=== PATIENT | male | born 1940 | race Caucasian/White ===

== ENCOUNTER 2019-07-07 13:47 | Emergency (ER) | payer OTHER ==
[~2019-07-07] VITALS: Ht 160 cm; Wt 55.3 kg
[~2019-07-07 13:47] MED LIST: ASPI-1077 PO; COR3.125 PO; PRAV40TA63 PO
[2019-07-07 13:56] VITALS: BP_SYST 131
--- NOTE | 2019-07-07 14:00 | NUR ---
Patient to ER bed 3 to gown for evaluation. Side rails up. Report given to DAX Mahan
--- NOTE | 2019-07-07 14:00 | NUR ---
Pt came to ER from home after feeling palpitations and tachycardic. No chest pain, or other complaints at this time.
--- NOTE | 2019-07-07 14:10 | NUR ---
Dr Gil to bedside for assessment
[2019-07-07] MEDS ORDERED: DILTIAZEM HCL 25 MG/5 ML VIAL IVP ONE (14:15)
--- NOTE | 2019-07-07 14:15 | NUR ---
Cardizem IVP administered
--- NOTE | 2019-07-07 14:25 | NUR ---
Cardizem and Amiadorne not administered. Pt self convereted to controlled a-fib
[2019-07-07] MEDS ORDERED: AMIODARONE HCL 150 MG/3ML VIAL IVP ONE (14:30)
[2019-07-07] MEDS ORDERED: NACL 0.9% 1,000 ML IV ONE (14:30)
[2019-07-07 14:56] LABS: BASOPHILS # (AUTO) 0.1 K/uL (0.0-0.2); BASOPHILS % (AUTO) 0.7 % (0.0-2.0); EOSINOPHILS # (AUTO) 0.1 K/uL (0.0-0.4); EOSINOPHILS % (AUTO) 0.8 % (0.0-4.0); HEMATOCRIT 47.8 % (36-54); HEMOGLOBIN 16.6 g/dL (14.0-18.0); LYMPHOCYTES # (AUTO) 1.3 K/uL (1.0-5.5); LYMPHOCYTES % (AUTO) 13.1 % (20.5-51.5); MEAN CORPUSCULAR HEMOGLOBIN 33 pg (27-31); MEAN CORPUSCULAR HGB CONC 35 % (32-36); MEAN CORPUSCULAR VOLUME 94 fL (79.0-98.0); MONOCYTES # (AUTO) 0.5 K/uL (0.0-1.0); MONOCYTES % (AUTO) 5.7 % (1.7-9.3); NEUTROPHILS # (AUTO) 7.6 K/uL (1.8-7.7); NEUTROPHILS % (AUTO) 79.7 % (40.0-70.0); PLATELET COUNT (AUTO) 237 K/uL (130-430); RED BLOOD CELL COUNT(AUTO) 5.08 MIL/uL (4.2-6.2); RED CELL DISTRIBUTION WIDTH 13.3 % (9.0-15.0); WHITE BLOOD COUNT (AUTO) 9.6 K/uL (4.8-10.8)
--- NOTE | 2019-07-07 15:00 | NUR ---
pt does not want to be admitted to the unit. AMA form signed.
[2019-07-07 15:05] LABS: ANION GAP 8 (5-15); CALCIUM 9.8 mg/dL (8.4-11.0); CHLORIDE 107 mmol/L (98-107); CREATININE 1.38 mg/dL (0.55-1.30); GLUCOSE 105 mg/dL (70-99); POTASSIUM 4.5 mmol/L (3.5-5.1); SODIUM SERUM 143 mmol/L (136-145); UREA NITROGEN, BLOOD 21 mg/dL (8-21)
[2019-07-07 15:10] VITALS: BP_SYST 131
[2019-07-07 15:14] LABS: ALANINE AMINOTRANSFERASE 16 U/L (12-78); ASPARTATE AMINOTRANSFERASE 17 U/L (10-37); TOTAL BILIRUBIN 0.9 mg/dL (0.0-1.0)
[2019-07-07] MEDS ORDERED: *HEPARIN PER PHARMACY XX ONE (15:30)
[2019-07-07] MEDS ORDERED: HEPARIN SODIUM,PORCINE 3000 UNITS/0.6 ML BOLUS IVP PRN (17:15)
[2019-07-07] MEDS ORDERED: HEPARIN 25,000 UNITS in 250 ML PREMIX IV PRN (17:15)
[2019-07-07] MEDS ORDERED: HEPARIN SODIUM,PORCINE 2000 UNITS/0.4 ML BOLUS IVP PRN (17:15)
[2019-07-07] MEDS ORDERED: HEPARIN SODIUM,PORCINE 5000 UNITS/ML VIAL IVP ONE (17:15)
[2019-07-07 17:18] LABS: INR 1.4 (0.80-1.20)
[2019-07-07] MEDS ORDERED: CARVEDILOL 6.25 MG TABLET (COREG) PO SCH (21:00)
[2019-07-08] MEDS ORDERED: ATORVASTATIN 10 MG TABLET PO SCH (09:00)
[2019-07-08] MEDS ORDERED: ASPIRIN 81 MG TAB.CHEW PO SCH (09:00)
== END 2019-07-07 15:00 | disposition left against medical advice (07) ==
LOC: SED 13:47 → STU 15:13 → UNDOADMOB 15:13 → UNDODISOB 15:14
DX: I48.91 Unspecified atrial fibrillation (principal); I10 Essential (primary) hypertension; Z79.82 Long term (current) use of aspirin; Z79.899 Other long term (current) drug therapy; Z86.79 Personal history of other diseases of the circulatory system
CPT/HCPCS: 36415; 71045; 80053; 84439; 84443; 84484; 85025; 85610; 85730; 93005; 99284; J0282; J7030; G0378